=== PATIENT | female | born 1985 ===

== ENCOUNTER → 2018-01-06 | Emergency (ER) | payer MEDICAID ==
[~2018-01-06] VITALS: Ht 152.4 cm; Wt 81.0 kg
[~2018-01-06] MED LIST: ibuprofen tablet 400 MG TABLET PO ONE
[2018-01-06 13:17] VITALS: BP 128/61
== END | disposition home or self-care (01) ==
LOC: ER 13:08
DX: S16.1XXA Strain of muscle, fascia and tendon at neck level, initial encounter (principal); F17.200 Nicotine dependence, unspecified, uncomplicated; X58.XXXA Exposure to other specified factors, initial encounter; Y93.89 Activity, other specified; Y92.89 Other specified places as the place of occurrence of the external cause; Y99.9 Unspecified external cause status
CPT/HCPCS: 99281